=== PATIENT | female | born 1965 | race Caucasian/White ===

== ENCOUNTER 2017-05-20 21:52 | Emergency (ER) | payer OTHER ==
[~2017-05-20] VITALS: Ht 167.6 cm; Wt 86.2 kg
[~2017-05-20 21:52] MED LIST: CLON.5 PO; FOSI40TA PO; QUET1TAB67 PO
[2017-05-20 21:58] VITALS: BP 213/102; PULSE 82; RESP 16; TEMP 99.4; O2SAT 98
[2017-05-20 22:15] VITALS: O2SAT 98
[2017-05-20] MEDS ORDERED: SODIUM CHLORIDE 0.9% FLUSH 10 ML FLUSH IVF PRN (22:15)
[2017-05-20] MEDS ORDERED: ASPIRIN 81 MG CHEW TAB PO ONE (22:15)
[2017-05-20] MEDS: RESP: ALBUTEROL 2.5 MG/IPRATROPIUM 0.5 MG NEB (SCH) INH ×3 (22:19→22:36)
--- NOTE | 2017-05-20 22:24 | PD ---
HPI . Chest pain Chief Complaint: Cold / Flu Symptoms Time Seen by Provider: 22:09 Travel History International Travel<30 days: No Contact w/Intl Traveler<30days: No Traveled to known affect area: No History of Present Illness HPI This patient presents with a chief complaint of chest pain. Onset was a couple of hours ago. Pain is sharp and continuous. Pain is exacerbated by deep breathing and coughing. Pain is mild. Patient states that she has had a chest cold for about a week. The cough is productive of mucus. No fever. No shortness of breath. She has been using a steroid inhaler for the last couple of days as well as her albuterol MDI. She is using the albuterol excellently 3 times per day. She reports no relief in her symptoms with these medications. PFSH Past Medical History Arthritis: Yes (HANDS) Asthma: Yes Autoimmune Disease: No Blood Disorders: No Anxiety: Yes Depression: Yes Heart Rhythm Problems: No Cancer: No Cardiovascular Problems: Yes (HTN) High Cholesterol: No Chemotherapy: No Chest Pain: Yes (TODAY ONLY) Congestive Heart Failure: No COPD: No Cerebrovascular Accident: No Diabetes: No Diminished Hearing: No Endocrine: No Glaucoma: No Genitourinary: No Headaches: Yes Hypertension: Yes Immune Disorder: No Musculoskeletal: Yes Neurologic: Yes Psychiatric: Yes Reproductive: No Migraines: Yes Myocardial Infarction: No Radiation Therapy: No Seizures: No Sickle Cell Disease: No Sleep Apnea: No Thyroid Disease: No ?: Not Menopausal: No Past Surgical History Abdominal Surgery: No AICD: No Arteriovenous Shunt: No Cardiac Surgery: No Ear Surgery: No Endocrine Surgery: No Eye Surgery: No Genitourinary Surgery: No Gynecologic Surgery: Yes (CERVICAL GROWTH REMOVED) Insulin Pump: No Joint Replacement: No Oral Surgery: No Pacemaker: No Thoracic Surgery: No Social History Alcohol Use: No Tobacco Use: Yes (2PK DAILY) Substance Use: No Allergies-Medications (Allergen,Severity, Reaction): Coded Allergies: codeine (Verified Allergy, Unknown, Wheezing, 05/20/17) Reported Meds & Prescriptions Reported Meds & Active Scripts Active Reported Flovent Hfa 12 GM Inh (Fluticasone Propionate) 110 Mcg/Act Inh 2 Puff INH BID Ventolin Hfa 18 GM Inh (Albuterol Sulfate) 90 Mcg/Act Aer 2 Puff INH Q4-6H PRN Effexor (Venlafaxine HCl) 75 Mg Tab 225 Mg PO DAILY Gabapentin 100 Mg Cap 300 Mg PO HS Review of Systems Except as stated in HPI: all other systems reviewed are Neg General / Constitutional: No: Fever, Chills Cardiovascular: Positive: Chest Pain or Discomfort Respiratory: Positive: Cough, No: Shortness of Breath Gastrointestinal: No: Nausea, Vomiting Physical Exam Narrative GENERAL: Awake and alert and in no acute distress. SKIN: warm/dry. No rash or lesions. HEAD: Normocephalic. Atraumatic. EYES: Pupils equal and round. No scleral icterus. No injection or drainage. ENT: No nasal bleeding or discharge. Mucous membranes pink and moist. NECK: Trachea midline. Full range of motion without pain.. CARDIOVASCULAR: Regular rate and rhythm. Heart sounds are normal. RESPIRATORY: No accessory muscle use. Diffuse coarse expiratory wheezing. Chest wall is tender to palpation. GASTROINTESTINAL: Abdomen soft. Nontender. Bowel sounds present. Nondistended. MUSCULOSKELETAL: No obvious deformities. NEUROLOGICAL: Awake and alert. No obvious cranial nerve deficits. Motor grossly within normal limits. Normal speech. PSYCHIATRIC: Appropriate mood and affect; insight and judgment normal. Data Data Last Documented VS Vital Signs Date Time Temp Pulse Resp B/P (MAP) Pulse Ox O2 Delivery O2 Flow Rate FiO2 05/20/17 22:15 98 Room Air 05/20/17 22:15 20 05/20/17 21:58 99.4 82 213/102 (139) Orders Orders Electrocardiogram (05/20/17 22:09) Basic Metabolic Panel (Bmp) (05/20/17 22:09) Ckmb (Isoenzyme) Profile (05/20/17 22:09) Complete Blood Count With Diff (05/20/17 22:09) D-Dimer (05/20/17 22:09) Magnesium (Mg) (05/20/17 22:09) Prothrombin Time / Inr (Pt) (05/20/17 22:09) Act Partial Throm Time (Ptt) (05/20/17 22:09) Troponin I (05/20/17 22:09) Chest, Single Ap (05/20/17 22:09) Ecg Monitoring (05/20/17 22:09) Iv Access Insert/Monitor (05/20/17 22:09) Oximetry (05/20/17 22:09) Aspirin Chew (Aspirin Chew) (05/20/17 22:15) Sodium Chloride 0.9% Flush (Ns Flush) (05/20/17 22:15) Albuterol-Ipratropium Neb (Duoneb Neb) (05/20/17 22:15) CKMB (05/20/17 22:25) CKMB% (05/20/17 22:25) Labs Laboratory Tests Test 05/20/17 22:25 White Blood Count 9.9 TH/MM3 Red Blood Count 4.28 MIL/MM3 Hemoglobin 13.2 GM/DL Hematocrit 39.1 % Mean Corpuscular Volume 91.4 FL Mean Corpuscular Hemoglobin 30.9 PG Mean Corpuscular Hemoglobin Concent 33.8 % Red Cell Distribution Width 12.1 % Platelet Count 308 TH/MM3 Mean Platelet Volume 7.7 FL Neutrophils (%) (Auto) 38.4 % Lymphocytes (%) (Auto) 42.1 % Monocytes (%) (Auto) 6.7 % Eosinophils (%) (Auto) 11.7 % Basophils (%) (Auto) 1.1 % Neutrophils # (Auto) 3.8 TH/MM3 Lymphocytes # (Auto) 4.1 TH/MM3 Monocytes # (Auto) 0.7 TH/MM3 Eosinophils # (Auto) 1.2 TH/MM3 Basophils # (Auto) 0.1 TH/MM3 CBC Comment DIFF FINAL Differential Comment Prothrombin Time 10.2 SEC Prothromb Time International Ratio 0.9 RATIO Activated Partial Thromboplast Time 28.7 SEC D-Dimer Quantitative (PE/DVT) 0.47 MG/L FEU Blood Urea Nitrogen 16 MG/DL Creatinine 1.10 MG/DL Random Glucose 91 MG/DL Calcium Level 8.4 MG/DL Magnesium Level 2.1 MG/DL Sodium Level 139 MEQ/L Potassium Level 3.4 MEQ/L Chloride Level 107 MEQ/L Carbon Dioxide Level 25.9 MEQ/L Anion Gap 6 MEQ/L Estimat Glomerular Filtration Rate 52 ML/MIN Total Creatine Kinase 172 U/L Troponin I LESS THAN 0.02 NG/ML MDM Medical Decision Making Medical Screen Exam Complete: Yes Emergency Medical Condition: Yes Interpretation(s) EKG shows a normal sinus rhythm with no acute ischemic change. Differential Diagnosis Differential diagnosis of chest pain includes but is not limited to musculoskeletal pain, pulmonary embolism, acute coronary syndrome, pneumonia, pleurisy Narrative Course This patient presents with chest pain. She has had a cough for the last week. Her chest pain is exacerbated by coughing and deep breathing. Most likely etiology of her chest pain is musculoskeletal secondary to the cough. CBC & BMP Diagram 05/20/17 22:25 Calcium Level 8.4 L, Magnesium Level 2.1 trop < 0.02. D-dimer 0.47 CXR to my interpretation is negative for infiltrate. This patient has bronchitis with chest wall pain. She will be discharged home on Zithromax, prednisone and Tussionex. Diagnosis Primary Impression: Chest wall pain Additional Impression: Bronchitis Patient Instructions: Acute Bronchitis (DC), Chest Wall Pain (ED), General Instructions Med/Other Pt SpecificInfo: Prescription(s) given Scripts Hydrocodone-Chlorpheniramine 12 HR Liq (Tussionex Pennkinetic Ext 12 HR Liq) 10- 8 Mg/5 Ml Susp 5 ML PO Q12H Y for COUGH AND/OR COLD SYMPTOMS, #60 ML 0 Refills Prov: Angelina Edwards MD 05/20/17 Prednisone (48) 10 mg tab Dose Pack (Prednisone (48) 10 mg tab Dose Pack) 10 Mg Dspk 10 MG PO DIRECTED for Inflammation, #1 DSPK 0 Refills Prov: Angelina Edwards MD 05/20/17 Azithromycin (Zithromax) 250 Mg Tab 250 MG PO DAILY for Infection for 4 Days, #4 TAB 0 Refills Prov: Angelina Edwards MD 05/20/17 Disposition: 01 DISCHARGE HOME Condition: Stable Angelina Edwards MD May 20, 2017 22:24
[2017-05-20] MEDS ORDERED: GABA100C4 PO (22:33)
[2017-05-20] MEDS ORDERED: VENL75TA PO (22:34)
[2017-05-20] MEDS ORDERED: VENTAER INH (22:34)
[2017-05-20] MEDS ORDERED: FLUTI110I INH (22:35)
[2017-05-20 22:39] LABS: AUTOMATED NEUTROPHIL # 3.8 TH/MM3 (1.8-7.7); BASOPHIL # 0.1 TH/MM3 (0-0.2); BASOPHIL % 1.1 % (0.0-2.0); EOSINOPHIL # 1.2 TH/MM3 (0-0.4); EOSINOPHIL % 11.7 % (0.0-4.0); HEMATOCRIT 39.1 % (35.0-46.0); HEMO FLAGS DIFF FINAL; LYMPH % 42.1 % (9.0-44.0); LYMPHOCYTE # 4.1 TH/MM3 (1.0-4.8); MEAN CELL VOLUME 91.4 FL (80.0-100.0); MEAN CORPUSCULAR HEMOGLOBIN 30.9 PG (27.0-34.0); MEAN CORPUSCULAR HGB CONC 33.8 % (32.0-36.0); MONO % 6.7 % (0.0-8.0); NEUT % 38.4 % (16.0-70.0); PLATELET COUNT 308 TH/MM3 (150-450); RED BLOOD COUNT 4.28 MIL/MM3 (4.00-5.30); RED CELL DISTRIBUTION WIDTH 12.1 % (11.6-17.2); WHITE BLOOD COUNT 9.9 TH/MM3 (4.0-11.0)
[2017-05-20 22:44] LABS: CHLORIDE 107 MEQ/L (98-107); POTASSIUM 3.4 MEQ/L (3.5-5.1); SODIUM (NA) 139 MEQ/L (136-145)
[2017-05-20 22:47] LABS: ANION GAP 6 MEQ/L (5-15); BICARBONATE 25.9 MEQ/L (21.0-32.0); BLOOD UREA NITROGEN 16 MG/DL (7-18); MAGNESIUM 2.1 MG/DL (1.5-2.5)
[2017-05-20 22:51] LABS: GLOMERULAR FILTRATION RATE 52 ML/MIN (>89)
[2017-05-20 22:52] LABS: APTT (PATIENT) 28.7 SEC (24.3-30.1); INTERNATIONAL NORMALIZED RATIO 0.9 RATIO; PROTHROMBIN TIME - PATIENT 10.2 SEC (9.8-11.6)
[2017-05-20 22:54] LABS: CREATINE KINASE 172 U/L (26-192)
[2017-05-20 23:00] VITALS: BP 196/89; PULSE 88; RESP 20; O2SAT 99
[2017-05-20] MEDS ORDERED: ZITH250T PO ×3 (23:01→23:30)
[2017-05-20] MEDS ORDERED: TUSSSUS2 PO ×3 (23:01→23:30)
[2017-05-20] MEDS ORDERED: PRED10PA2 PO ×3 (23:01→23:30)
--- NOTE | 2017-05-20 23:05 | RADRPT ---
EXAM DATE/TIME: 05/20/2017 22:26 [facility] COMPARISON: No previous studies available for comparison. INDICATIONS : Chest pain and congestion for one week. MEDICAL HISTORY : Hypertension. SURGICAL HISTORY : None. ENCOUNTER: Initial ACUITY: 1 week PAIN SCORE: 3/10 LOCATION: Left chest FINDINGS: A single view of the chest demonstrates the lungs to be symmetrically aerated without evidence of mas s, infiltrate or effusion. The cardiomediastinal contours are unremarkable. Osseous structures are intact. CONCLUSION: No acute disease. Jose F Perez MD on May 20, 2017 at 23:03 Board Certified Radiologist. This report was verified electronically.
[2017-05-20 23:06] LABS: CKMB 1.8 NG/ML (0.5-3.6)
[2017-05-20] MEDS ORDERED: AZITHROMYCIN 250 MG TAB PO ONE (23:15)
[2017-05-20] MEDS ORDERED: predniSONE 20 MG TAB PO ONE (23:15)
[2017-05-20] MEDS ORDERED: POTASSIUM CHLORIDE 20 MEQ CONTROLLED RELEASE TAB PO ONE (23:15)
[2017-05-20] MEDS ORDERED: ACETAMINOPHEN/HYDROcodone 325 MG/10 MG TAB PO ONE (23:15)
[2017-05-20 23:41] VITALS: BP 191/92
--- NOTE | 2017-05-21 09:12 | EKG ---
Date Performed: 05/20/2017 Time Performed: 22:55:35 PTAGE: 52 years EKG: Sinus rhythm POSSIBLE LEFT ATRIAL ENLARGEMENT NONSPECIFIC ST & T-WAVE ABNORMALITY BORDERLINE ECG NO PREVIOUS TRACING DOCTOR: Joaquin Hollins Interpretating Date/Time 05/21/2017 09:10:22
== END 2017-05-20 23:44 | disposition home or self-care (01) ==
LOC: PHED 21:52
DX: R07.89 Other chest pain (principal); J40 Bronchitis, not specified as acute or chronic; R94.31 Abnormal electrocardiogram [ECG] [EKG]; I10 Essential (primary) hypertension; F17.200 Nicotine dependence, unspecified, uncomplicated; Z79.899 Other long term (current) drug therapy; Z87.09 Personal history of other diseases of the respiratory system; Z87.39 Personal history of other diseases of the musculoskeletal system and connective tissue; Z86.59 Personal history of other mental and behavioral disorders; Z86.79 Personal history of other diseases of the circulatory system; Z86.69 Personal history of other diseases of the nervous system and sense organs
CPT/HCPCS: 71010; 80048; 82550; 82552; 83735; 84484; 85025; 85379; 85610; 85730; 93005; 94640; 94664; 99285; J7512